=== PATIENT | male | born 2005 | race Caucasian/White ===

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

== ENCOUNTER 2024-01-09 21:35 | Emergency (ER) | payer BC ==
[~2024-01-09] VITALS: Ht 188 cm; Wt 95.2 kg
[2024-01-09 21:44] VITALS: BP 127/77; PULSE 105; RESP 16; TEMP 99; O2SAT 98
== END 2024-01-09 23:39 | disposition home or self-care (01) ==
LOC: ER 21:36
DX: S00.212A Abrasion of left eyelid and periocular area, initial encounter (principal); W25.XXXA Contact with sharp glass, initial encounter; Y93.89 Activity, other specified; Y92.89 Other specified places as the place of occurrence of the external cause; Y99.8 Other external cause status
CPT/HCPCS: 99281